=== PATIENT | female | born 1975 | race Caucasian/White ===

== ENCOUNTER → 2022-05-17 11:01 | Outpatient (CLI) | payer OTHER, SELFPAY ==
--- NOTE | 2022-05-17 | DI.US.S_ITS ---
PROCEDURE: US THYROID INDICATIONS: Nontoxic diffuse goiter TECHNIQUE: Real-time scanning was performed of the thyroid gland, with image documentation. COMPARISON: [facility], US, US THYROID, 08/30/2016, 16:11. FINDINGS: Right: Thyroid lobe measures 8.0 x 3.9 x 5.6 cm, and is heterogeneous in echotexture. Left: Thyroid lobe measures 5.0 x 1.5 x 2.0 cm, and is homogenous in echotexture. Isthmus: 6 mm thick. Nodule number: 1 Location: Entire right thyroid lobe Size: 7.3 x 3.5 x 5.9 cm. Composition: Solid Echogenicity: Hypoechoic Shape: wider than tall. Margins: Smooth Echogenic foci: Non Total points: 4 ACR TI-RADS category: 4 Nodule number: 2 Location: Left inferior Size: 1.0 x 0.8 x 0.9 cm. Composition: Solid Echogenicity: Hypoechoic Shape: wider than tall. Margins: Small Echogenic foci: None Total points: 4 ACR TI-RADS category: 4 IMPRESSION: 1. The right thyroid lobe is markedly enlarged and demonstrates diffusely abnormal echotexture. The appearance is unchanged from the last exam. A discrete mass may or may not be present. Please correlate with thyroid function tests. Consider a radionuclide uptake and scan for follow-up evaluation. If the nodule demonstrates decreased uptake (cold) on thyroid scan, a fine-needle aspiration biopsy should be considered. 2. Mild left thyroid enlargement. A small left thyroid nodule. Recommend imaging follow-up. Please see enclosed follow-up recommendation. ACR TI-RADS definitions and recommendations: TI-RADS 1 (benign): 0 points. FNA not needed. TI-RADS 2 (not suspicious): 2 points. FNA not needed. TI-RADS 3 (mildly suspicious): 3 points. * FNA if 2.5 cm or larger, follow up if 1.5 cm or larger (at 1, 3, and 5 years). TI-RADS 4 (moderately suspicious): 4-6 points. * FNA if 1.5 cm or larger, follow up if 1 cm or larger (at 1, 2, 3, and 5 years). TI-RADS 5 (highly suspicious): 7 points or more. * FNA if 1 cm or larger, follow up if 0.5 cm or larger (every year for 5 years). Dictated by: Christi Armstrong M.D. on 05/17/2022 at 16:50 Approved by: Christi Armstrong M.D. on 05/17/2022 at 16:58
== END ==
PROVIDERS: PCP Family Medicine; Referring Provider Family Medicine; Visit Provider Family Medicine
DX: E04.2 Nontoxic multinodular goiter (principal)
CPT/HCPCS: 76536

== ENCOUNTER → 2022-07-18 11:59 | Outpatient (CLI) | payer OTHER, SELFPAY ==
--- NOTE | 2022-07-18 | DI.US.S_ITS ---
PROCEDURE: US PELVIC COMPLETE INDICATIONS: Primary amenorrhea TECHNIQUE: Real-time scanning was performed of the pelvic organs, with image documentation. Additional endovaginal scanning was necessary due to incomplete visualization of the adnexal and endometrial structures by transabdominal scanning. COMPARISON: None. FINDINGS: Uterus: Uterus is anteverted and normal in size at 8.7 x 5.0 x 6.8 cm. The myometrium is homogeneous. The endometrium measures 5 mm combined thickness. Anterior intramural fibroid measuring 1.0 x 0.7 x 0.7 centimeters Ovaries: The right ovary measures 2.4 x 1.2 x 2.4 cm, with a calculated ovarian volume of 4 cc. The left ovary measures 1.4 x 2.3 x 1.2 cm, with a calculated ovarian volume of 2 cc. The ovaries have a normal sonographic appearance. Less than 12 follicles can be seen in each ovary. No adnexal masses are seen. Other: No pathologic free abdominal or pelvic fluid. IMPRESSION: 1. An intramural uterine fibroid is present measuring up to 1.0 centimeters. 2. Unremarkable sonographic appearance of the ovaries. No adnexal mass visualized. We strive to produce accurate, complete, and clear reports of imaging services. To assist us in improving patient care, this report was composed using standard report templates and voice recognition software. Therefore, it may contain abnormal punctuation, insertions and/or omissions. Occasional wrong-word or sound-alike substitutions may occur. Though we review the report and make efforts to correct it, we do recommend that the report be read carefully in proper context to recognize any text inaccuracies. Dictated by: Zaheer Luu M.D. on 07/18/2022 at 17:37 Approved by: Zaheer Luu M.D. on 07/18/2022 at 17:39
== END ==
PROVIDERS: PCP Family Medicine; Referring Provider Family Medicine; Visit Provider Family Medicine
DX: D25.9 Leiomyoma of uterus, unspecified (principal)
CPT/HCPCS: 76830; 76856